=== PATIENT | female | born 1990 | race Hispanic/Latino ===

== ENCOUNTER 2018-02-18 06:19 | Day surgery (SDC) | payer OTHER ==
[2018-02-17 10:50] LABS: Absolute Monocytes 0.3 K/uL (0.1-1.3); Absolute Neutrophil 6.6 K/uL (1.8-8.0); Basophils % 0.6 % (0-1.3); Eosinophils % 0.9 % (0-4.4); Hematocrit 41.6 % (36.0-45.0); Lymphocytes % 22.3 % (15.3-44.8); MCH 29.9 pg (27.0-35.0); MPV 9.6 fL (7.6-11.3); Monocytes % 3.8 % (3.3-12.3); RBC Red Blood Cell Count 4.68 M/uL (3.86-4.86)
[2018-02-17 10:51] LABS: Protime INR 0.99
[2018-02-17 11:13] LABS: Urine Appearance CLEAR; Urine Bilirubin NEGATIVE (NEG); Urine Blood NEGATIVE (NEG); Urine Color YELLOW; Urine Glucose NEGATIVE (NEG); Urine Protein NEGATIVE (NEG); Urine Urobilinogen 0.2 mg/dL (0.2-1.0)
[2018-02-17 11:21] LABS: Urine Microscopic Reflex NO UMIC
[2018-02-18] MEDS ORDERED: Ringers Lactate 1,000 ML IV ONE (06:28)
[2018-02-18] MEDS ORDERED: CEFAZOLIN/SWI 1gm 1 GM/10 ML SYR ONE (06:29)
[2018-02-18] MEDS ORDERED: LIDOCAINE 1% 20 ML MDV ONE (07:05)
[2018-02-18] MEDS: CEFAZOLIN/SWI 1gm 1 GM/10 ML SYR IVP SCH ×2 (07:06→07:29)
[2018-02-18] MEDS ORDERED: MIDAZOLAM HCL 2 MG/2 ML INJ ONE (07:12)
[2018-02-18] MEDS ORDERED: PROPOFOL 200 MG/20 ML VIAL IV ONE (07:12)
[2018-02-18] MEDS ORDERED: LIDOCAINE 2% MPF 5 ML VIAL ONE (07:13)
[2018-02-18] MEDS ORDERED: FENTANYL CITR 100 MCG/2 ML ONE (07:13)
[2018-02-18] MEDS ORDERED: DEXAMETHASONE 4 MG/ML VIAL ONE (07:19)
[2018-02-18] MEDS ORDERED: ONDANSETRON HCL 40 MG/20 ML VIAL ONE (07:39)
[2018-02-18] MEDS: BUPIVACAINE 0.5% PF 10 ML VIAL ONE ×2 (07:50→07:52)
[2018-02-18] MEDS ORDERED: Mastisol Adhesive Liq ONE (09:03)
[2018-02-18] MEDS ORDERED: HYDROCODONE/APAP 10/325 TAB ONE (10:43)
== END 2018-02-18 11:30 | disposition home or self-care (01) ==
LOC: OR 06:19
PROVIDERS: ATTEND Podiatrist Foot Surgery
PROC: 0QSN04Z Reposition Right Metatarsal with Internal Fixation Device, Open Approach (ICD-10-PCS; principal; 2018-02-18 07:30)
DX: M20.11 Hallux valgus (acquired), right foot (principal)
CPT/HCPCS: 36415; 81003; 81025; 85025; 85610; 85730; 88300; J0690; J2250; J2405; J3010

== ENCOUNTER 2019-03-05 17:18 | Emergency (ER) | payer OTHER ==
[2019-03-05 18:29] LABS: Absolute Lymphocytes (CBC) 3.9 K/uL (0.7-4.9); Basophils % 0.9 % (0-1.3); Eosinophils % 1.4 % (0-4.4); Hematocrit 37.2 % (36.0-45.0); Lymphocytes % 57.3 % (15.3-44.8); MPV 8.6 fL (7.6-11.3); Monocytes % 7.6 % (3.3-12.3); RBC Red Blood Cell Count 4.22 M/uL (3.86-4.86)
[2019-03-05 18:32] LABS: Protime INR 0.86
[2019-03-05 18:42] LABS: ALT/SGPT 170 U/L (12-78); AST/SGOT 98 U/L (15-37); Albumin 3.3 g/dL (3.4-5.0); Alkaline Phosphatase 150 U/L (45-117); BUN Blood Urea Nitrogen 10 mg/dL (7-18); Bicarbonate 25 mmol/L (21-32); Bilirubin Direct < 0.1 mg/dL (0-0.2); Bilirubin Total 0.3 mg/dL (0.2-1.0); Glucose Level 100 mg/dL (74-106); Magnesium 2.2 mg/dL (1.8-2.4); Potassium 3.4 mmol/L (3.5-5.1); Protein, Total 7.9 g/dL (6.4-8.2); Sodium Level 140 mmol/L (136-145); Troponin (Emerg Dept Use Only) < 0.02 ng/mL (0.0-0.045)
[2019-03-05 19:32] LABS: Urine Amorphous Sediment 1+ /HPF (NONE SEEN); Urine Bacteria <20 /HPF (<20); Urine Culture Reflex Order NOT NEEDED; Urine RBC <5 /HPF (NONE SEEN)
[2019-03-05] MEDS ORDERED: POTASSIUM 25 MEQ EFFERV TAB ONE (20:43)
--- NOTE | 2019-03-05 20:43 | EDPHYS ---
Physician Documentation [facility] Name: Tina Gamez Age: 28 yrs Sex: Female : 1990 Arrival Date: 03/05/2019 Time: 17:20 Bed 20 Private MD: ED Physician Johnnie Turcios HPI: 03/05 17:50 This 28 yrs old Female presents to ER via Ambulatory with complaints of Chest cp Tightness, fatigue. 17:50 The patient or guardian reports chest pain that is located primarily in the anterior cp chest wall, left. 17:50 The pain does not radiate. Associated signs and symptoms: Pertinent positives: fatigue cp times 1 week, bruising. The chest pain is described as tightness. Duration: The patient or guardian reports a single episode, that is still ongoing, but improving. Modifying factors: The symptoms are alleviated by nothing. the symptoms are aggravated by nothing. 17:50 Severity of pain: in the emergency department the pain is a 3 / 10. cp 17:50 The patient has been recently seen at an urgent care, today, for similar complaints, cp and was sent to the [facility] Emergency Department for further evaluation. 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 - Social history:: Smoking status: Patient/guardian denies using tobacco. - Ebola Screening: : No symptoms or risks identified at this time. ROS: 17:53 Eyes: Negative for injury, pain, redness, and discharge. cp 17:53 Constitutional: Positive for fatigue, Negative for body aches, chills, fever, poor PO intake, weight loss. 17:53 ENT: Negative for drainage from ear(s), ear pain, sore throat, difficulty swallowing, difficulty handling secretions. 17:53 Cardiovascular: Positive for chest tightness, Negative for edema, palpitations. 17:53 Respiratory: Positive for shortness of breath, on exertion. Negative for cough, wheezing. 17:53 Abdomen/GI: Negative for abdominal pain, nausea, vomiting, and diarrhea, constipation, black/tarry stool, rectal bleeding. 17:53 Neuro: Negative for altered mental status, dizziness, headache, weakness. 17:53 All other systems are negative. Exam: 17:54 ECG was reviewed by the Attending Physician. cp 18:00 Constitutional: The patient appears in no acute distress, alert, awake, cp non-diaphoretic, non-toxic, well developed, well nourished. 18:00 Head/Face: Normocephalic, atraumatic. Eyes: Pupils equal round and reactive to light, cp extra-ocular motions intact. Lids and lashes normal. Conjunctiva and sclera are non-icteric and not injected. Cornea within normal limits. Periorbital areas with no swelling, redness, or edema. ENT: Nares patent. No nasal discharge, no septal abnormalities noted. Tympanic membranes are normal and external auditory canals are clear. Oropharynx with no redness, swelling, or masses, exudates, or evidence of obstruction, uvula midline. Mucous membranes moist. Chest/axilla: Normal chest wall appearance and motion. Nontender with no deformity. No lesions are appreciated. Cardiovascular: Regular rate and rhythm with a normal S1 and S2. No gallops, murmurs, or rubs. Normal PMI, no JVD. No pulse deficits. Respiratory: Lungs have equal breath sounds bilaterally, clear to auscultation and percussion. No rales, rhonchi or wheezes noted. No increased work of breathing, no retractions or nasal flaring. Abdomen/GI: Soft, non-tender, with normal bowel sounds. No distension or tympany. No guarding or rebound. No evidence of tenderness throughout. 18:00 Skin: cellulitis, is not appreciated, rash can be described as petechial, on the left lower leg and right lower leg. 18:00 Neuro: Orientation: to person, place \T\ time. Mentation: is normal, Cerebellar function: is grossly normal, Motor: moves all fours, strength is normal, Sensation: is normal, Gait: is steady, at a normal pace, without difficulty. Vital Signs: 17:26 BP 142 / 76; Pulse 81; Resp 16; Temp 97.4; Pulse Ox 98% on R/A; Weight 69.85 kg; Height la1 5 ft. 2 in. (157.48 cm); 18:30 BP 108 / 69; Pulse 80; Resp 18; Pulse Ox 99% on R/A; Pain 3/10; em 19:05 BP 113 / 69; Pulse 74; Resp 17; Temp 98; Pulse Ox 99% ; Pain 3/10; rr5 20:00 BP 118 / 76; Pulse 80; Resp 17; Pulse Ox 99% ; rr5 21:00 BP 115 / 70; Pulse 79; Resp 16; Temp 98; Pulse Ox 99% on R/A; rr5 17:26 Body Mass Index 28.17 (69.85 kg, 157.48 cm) la1 MDM: 17:27 Patient medically screened. [email or web address] 18:00 Differential diagnosis: abnormal EKG, acute myocardial infarction, acute pericarditis, cp chest wall pain, costochondritis, esophagitis, gastritis, pancreatitis, pleurisy, pneumothorax, pulmonary embolus. 20:42 Data reviewed: vital signs, nurses notes, lab test result(s), EKG, radiologic studies, cp CT scan, plain films. 20:42 Test interpretation: by ED physician or midlevel provider: ECG, plain radiologic cp studies. Counseling: I had a detailed discussion with the patient and/or guardian regarding: the historical points, exam findings, and any diagnostic results supporting the discharge/admit diagnosis, lab results, radiology results, the need for outpatient follow up, a family practitioner, to return to the emergency department if symptoms worsen or persist or if there are any questions or concerns that arise at home. ED course: VSS. Discussed results of labs that showed elevated liver enzymes. EKG and cardiac enzymes negative. CT chest negative for PE. Will discharge to home for continued monitoring. Recommend avoiding acetaminophen until f/u to recheck liver enzymes. 03/05 17:35 Order name: Basic Metabolic Panel; Complete Time: 18:42 03/05 19:41 Interpretation: Normal except: K 3.4; GFR 87; CA 8.3. 03/05 17:35 Order name: CBC with Diff; Complete Time: 18:42 03/05 19:41 Interpretation: Normal except: EDILSON% 32.8; LYM% 57.3. cp 03/05 17:35 Order name: LFT's; Complete Time: 18:42 cp 03/05 19:42 Interpretation: Normal except: AST 98; ALT 170; ALK 150; ALB 3.3; GLOB 4.6; A/G 0.7. cp 03/05 17:35 Order name: Magnesium; Complete Time: 18:42 cp 03/05 17:35 Order name: PT-INR; Complete Time: 18:42 cp 03/05 17:35 Order name: Troponin (emerg Dept Use Only); Complete Time: 18:42 cp 03/05 17:35 Order name: XRAY Chest (1 view) cp 03/05 17:35 Order name: EKG; Complete Time: 17:36 cp 03/05 17:35 Order name: D-Dimer; Complete Time: 18:42 cp 03/05 19:42 Interpretation: Abnormal: D-DIMER 1740. cp 06/ 17:35 Order name: Urine Microscopic Only; Complete Time: 19:41 cp 03/05 19:42 Interpretation: Reviewed. 03/05 18:44 Order name: CT Chest For PE Angio cp 03/05 17:35 Order name: Cardiac monitoring; Complete Time: 18:11 cp 03/05 17:35 Order name: EKG - Nurse/Tech; Complete Time: 18:11 cp 03/05 17:35 Order name: IV Saline Lock; Complete Time: 18:11 cp 03/05 17:35 Order name: Labs collected and sent; Complete Time: 18:11 cp 03/05 17:35 Order name: O2 Per Protocol; Complete Time: 18:11 cp 03/05 17:35 Order name: O2 Sat Monitoring; Complete Time: 18:11 cp 22 17:35 Order name: Urine Dipstick-Ancillary (obtain specimen); Complete Time: 18:11 cp 03/05 17:35 Order name: Urine Test (obtain specimen); Complete Time: 18:11 cp EC:54 Rate is 74 beats/min. Rhythm is regular. VA interval is normal. QRS interval is normal. cp QT interval is normal. Q waves are Present in leads II, III, aVF. T waves are Inverted in lead aVR. Interpreted by me. Reviewed by me. Administered Medications: 20:31 Drug: Potassium Effervescent Tablet 25 mEq Route: PO; rr5 21:20 Follow up: Response: No adverse reaction rr5 21:20 Not Given (Patient Refused): TORadol 30 mg IVP once; if test negative rr5 Disposition: 03/05/19 20:43 Discharged to Home. Impression: Other chest pain, Abnormal results of liver function studies. - Condition is Stable. - Discharge Instructions: Nonspecific Chest Pain. - Medication Reconciliation Form, Thank You Letter, Antibiotic Education, Prescription Opioid Use form. - Follow up: Tommy Jenkins MD; When: 2 - 3 days; Reason: Recheck today's complaints. - Problem is new. - Symptoms have improved. Addendum: 03/07/2019 09:45 Co-signature as Attending Physician, Johnnie Turcios MD I agree with the assessment and c rodriguez plan of care. Signatures: Dispatcher [employer] EDMD Johnnie Turcios MD MD cha Attema, Lee RN RN la1 Johnnie Edmondson PA PA cp Redd Meza, RN RN rr5 Corrections: (The following items were deleted from the chart) 03/05 19:41 19:41 Normal except: K 3.4; GFR 87. cp cp 21:21 20:43 03/05/2019 20:43 Discharged to Home. Impression: Other chest pain; Abnormal rr5 results of liver function studies. Condition is Stable. Forms are Medication Reconciliation Form, Thank You Letter, Antibiotic Education, Prescription Opioid Use. Follow up: Tommy Jenkins; When: 2 - 3 days; Reason: Recheck today's complaints. Problem is new. Symptoms have improved. cp
--- NOTE | 2019-03-05 20:43 | ER ---
Nurse's Notes [facility] Name: Tina Gamez Age: 28 yrs Sex: Female : 1990 Arrival Date: 03/05/2019 Time: 17:20 Bed 20 Private MD: Diagnosis: Other chest pain;Abnormal results of liver function studies Presentation: 03/05 17:23 Presenting complaint: Patient states: I have been feeling fatigue for the past week or la1 so and this morning I started having some chest tightness, I went to urgent care and they said I needed some blood work because my EKG was a little off and I had petechiae on my legs and left shoulder area. Pt reports taking oral contraceptive and feels SOB with some chest pressure. Transition of care: patient was not received from another setting of care. Onset of symptoms was March 05, 2019. Risk Assessment: Do you want to hurt yourself or someone else? Patient reports no desire to harm self or others. Initial Sepsis Screen: Does the patient meet any 2 criteria? No. Patient's initial sepsis screen is negative. Does the patient have a suspected source of infection? No. Patient's initial sepsis screen is negative. Care prior to arrival: None. 17:23 Method Of Arrival: Ambulatory la1 17:23 Acuity: EDGAR 3 la1 MANAGER QA: 17:26 LMP 02/08/2019 la1 Historical: - Allergies: 17:26 No Known Allergies; la1 - PMHx: 17:26 None; la1 - PSHx: 17:26 bunion removal; la1 - Immunization history:: Adult Immunizations up to date. - Social history:: Smoking status: Patient/guardian denies using tobacco. - Ebola Screening: : No symptoms or risks identified at this time. Screenin:50 Abuse screen: Denies threats or abuse. Nutritional screening: No deficits noted. em Tuberculosis screening: No symptoms or risk factors identified. Fall Risk None identified. Assessment: 17:44 General: Appears in no apparent distress. comfortable, Behavior is calm, cooperative, em Denies fever. Pain: Complains of pain in chest Pain does not radiate. Pain currently is 3 out of 10 on a pain scale. Quality of pain is described as "tightness" Pain began 1.5 weeks ago. Neuro: Level of Consciousness is awake, alert, obeys commands, Oriented to person, place, time, situation, Speech is normal, Reports headache. Cardiovascular: Capillary refill < 3 seconds Patient's skin is warm and dry. Rhythm is sinus rhythm. Respiratory: Airway is patent Respiratory effort is even, unlabored, Respiratory pattern is regular, symmetrical, Breath sounds are clear bilaterally. GI: Patient currently denies nausea, vomiting. : Denies burning with urination. Derm: Skin is intact, is healthy with good turgor, Skin is pink, warm \\T\\ dry. Musculoskeletal: Capillary refill < 3 seconds, Range of motion: intact in all extremities. 18:10 Reassessment: Patient appears in no apparent distress at this time. Patient and/or em family updated on plan of care and expected duration. Pain level reassessed. Patient is alert, oriented x 3, equal unlabored respirations, skin warm/dry/pink. currently does not want pain medication, rates pain 3/10, informed to notified nurse if pain changes. 19:05 General: Appears in no apparent distress. comfortable, Behavior is calm, cooperative, rr5 appropriate for age, Denies fever. Pain: Complains of pain in chest Pain does not radiate. Pain currently is 3 out of 10 on a pain scale. Quality of pain is described as tightness Pain began Is intermittent. 19:05 Reassessment: patient verbalized she feels okay now does not want the pain rr5 medication.awaiting for result. Neuro: Level of Consciousness is awake, alert, obeys commands, Oriented to person, place, time, situation, Appropriate for age. Cardiovascular: Reports chest pain, Capillary refill < 3 seconds Patient's skin is warm and dry. Respiratory: Airway is patent Respiratory effort is even, unlabored, Respiratory pattern is regular, symmetrical. GI: No signs and/or symptoms were reported involving the gastrointestinal system. : No signs and/or symptoms were reported regarding the genitourinary system. EENT: No signs and/or symptoms were reported regarding the EENT system. Derm: Skin is intact, is healthy with good turgor, Skin is pink, warm \\T\\ dry. Musculoskeletal: Circulation, motion, and sensation intact. Capillary refill < 3 seconds. 20:00 Reassessment: Patient appears in no apparent distress at this time. Patient is alert, rr5 oriented x 3, equal unlabored respirations, skin warm/dry/pink. 21:05 Reassessment: Patient appears in no apparent distress at this time. Patient is alert, rr5 oriented x 3, equal unlabored respirations, skin warm/dry/pink. discharge instruction given and explained without complaints made. Patient states symptoms have improved. Vital Signs: 17:26 BP 142 / 76; Pulse 81; Resp 16; Temp 97.4; Pulse Ox 98% on R/A; Weight 69.85 kg; Height la1 5 ft. 2 in. (157.48 cm); 18:30 BP 108 / 69; Pulse 80; Resp 18; Pulse Ox 99% on R/A; Pain 3/10; em 19:05 BP 113 / 69; Pulse 74; Resp 17; Temp 98; Pulse Ox 99% ; Pain 3/10; rr5 20:00 BP 118 / 76; Pulse 80; Resp 17; Pulse Ox 99% ; rr5 21:00 BP 115 / 70; Pulse 79; Resp 16; Temp 98; Pulse Ox 99% on R/A; rr5 17:26 Body Mass Index 28.17 (69.85 kg, 157.48 cm) la1 ED Course: 17:20 Patient arrived in ED. mr 17:23 Arm band placed on right wrist. la1 17:25 Triage completed. la1 17:27 Johnnie Edmondson PA is PHCP. cp 17:27 Johnnie Turcios MD is Attending Physician. cp 17:32 Magdy Ramos LVN is Primary Nurse. em 17:50 Patient has correct armband on for positive identification. Placed in gown. Bed in low em position. Call light in reach. Adult w/ patient. Pulse ox on. NIBP on. 17:50 Initial lab(s) drawn, by me, sent to lab. Inserted saline lock: 22 gauge in right em antecubital area, using aseptic technique. Blood collected. Patient maintains SpO2 saturation greater than 95% on room air. 17:59 XRAY Chest (1 view) In Process Unspecified. EDMS 18:35 Notified Nurse Practitioner and/or Physician Pipeline Superintendent Division of a critical lab result(s), DD em 1740. 19:37 CT Chest For PE Angio In Process Unspecified. EDMS 20:42 Tommy Jenkins MD is Referral Physician. cp 21:21 No provider procedures requiring assistance completed. IV discontinued, intact, rr5 bleeding controlled, No redness/swelling at site. Pressure dressing applied. Administered Medications: 20:31 Drug: Potassium Effervescent Tablet 25 mEq Route: PO; rr5 21:20 Follow up: Response: No adverse reaction rr5 21:20 Not Given (Patient Refused): TORadol 30 mg IVP once; if test negative rr5 Outcome: 20:43 Discharge ordered by . sujey 21:21 Discharged to home ambulatory, with family. rr5 21:21 Condition: stable 21:21 Discharge instructions given to patient, Instructed on discharge instructions, follow up and referral plans. Demonstrated understanding of instructions, follow-up care. 21:21 Patient left the ED. rr5 Signatures: Dispatcher [employer] Aurea Guevara RamosMagdy, SUPERVISOR TRANSFERRING AND BOXING SUPERVISOR TRANSFERRING AND BOXING Michael Leroy, RN RN la1 Johnnie Edmondson PA PA cp Roque, Raymond, RN RN rr5
--- NOTE | 2019-03-05 21:05 | RAD REPORT ---
EXAM DESCRIPTION: RAD - Chest Single View - 03/05/2019 5:59 pm CLINICAL HISTORY: Chest pain, shortness of breath COMPARISON: None. TECHNIQUE: AP portable chest image was obtained 1751 hours . FINDINGS: Lungs are clear. Heart and vasculature are normal. No measurable pleural effusion and no p neumothorax. No acute bony abnormality seen. No acute aortic findings suspected. IMPRESSION: No acute cardiopulmonary process.
--- NOTE | 2019-03-07 07:56 | EKG ---
Test Date: 2019-03-05 Test Time: 17:47:32 Nut Threader: MARGOTH MEASUREMENT RESULTS: Intervals: Rate: 74 NE: 166 QRSD: 78 QT: 390 QTc: 432 [place]: P: 67 NE: 166 QRS: 69 T: 46 INTERPRETIVE STATEMENTS: Normal sinus rhythm Normal ECG No previous ECG available for comparison Electronically Signed On 03-07-19 07:54:19 CDT by Eric Anderson
--- NOTE | 2019-03-07 12:26 | RAD REPORT ---
EXAM DESCRIPTION: CT - Chest For Pe Angio - 03/05/2019 7:36 pm CLINICAL HISTORY: Shortness of breath. COMPARISON: None. TECHNIQUE: CT angiogram of the chest with IV contrast. 3-D MIP images were obtained in coronal and s agittal reconstructions. This exam was performed according to our departmental dose-optimization prog jennifer, which includes automated exposure control, adjustment of the mA and/or kV according to patient s ize and/or use of iterative reconstruction technique. FINDINGS: No filling defects are identified in the pulmonary trunk, main left and right pulmonary ar teries, or the segmental branches. The thyroid gland is normal. No mediastinal or hilar adenopathy. The heart size is normal without per icardial effusion. The thoracic aorta is normal caliber. No consolidation, pleural effusion, or pneum othorax is identified. The visualized upper abdomen demonstrates no acute findings. No acute osseous findings are seen. IMPRESSION: No acute pulmonary embolism. Electronically signed by: Jd Rae MD 03/05/2019 7:44 PM CDT Due to temporary technical issues with the PACS/Fluency reporting system, reports are being signed by the in house radiologist as a courtesy to ensure prompt reporting. The interpreting radiologist is f ully responsible for the content of the report.
== END 2019-03-05 21:21 | disposition home or self-care (01) ==
LOC: ER 17:18
DX: R94.5 Abnormal results of liver function studies (principal)
CPT/HCPCS: 36415; 71045; 71275; 80048; 80076; 81015; 83735; 84484; 85025; 85379; 85610; 93005; 99285; Q9967